=== PATIENT | male | born 1995 | race Caucasian/White ===

== ENCOUNTER 2018-02-24 17:44 | Emergency (ER) | payer SELFPAY ==
--- NOTE | 2018-02-24 20:02 | UC ---
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 Pt states pain is 6/10, sharp when he bends his wrist. He can move all finger and make a fist w/o any difficulty. Pt applied ice and took an Advil yesterday. Pt denies numbness or tingling sensation over hand or fingers, SOB, chest pain, N/V/D. - History Of Current Complaint Chief Complaint: UCUpperExtremity Stated Complaint: LEFT WRIST INJURY Time Seen by Provider: 02/24/18 19:33 Hx Obtained From: Patient Onset/Duration: Sudden Onset Severity Initially: Moderate Severity Currently: Moderate Pain Intensity: 6 Pain Scale Used: 0-10 Numeric Character Of Pain: Sharp Aggravating Factor(s): Movement, Lifting, Flexion, Twisting, Pulling Alleviating Factor(s): Rest, Ice, OTC Meds Associated Signs And Symptoms: Positive: Swelling, Bruising. Negative: Numbness /Tingling Related History: Dominant Hand Right - Allergies/Home Medications Allergies/Adverse Reactions: Allergies Allergy/AdvReac Type Severity Reaction Status Date / Time No Known Allergies Allergy Verified 02/24/18 18:30 Home Medications: Home Medications Ibuprofen TAB* [Advil TAB*] 600 mg PO Q6H PRN 02/24/18 [History Confirmed ] PMH/Surg Hx/FS Hx/Imm Hx Previously Healthy: Yes - Pt denies PMHX - Surgical History Surgical History: None - Family History Known Family History: Positive: None - Pt denies FMHX - Social History Occupation: Employed Full-time Lives: With Family Alcohol Use: None Substance Use Type: None Smoking Status (MU): Never Smoked Tobacco Review of Systems Constitutional: Negative Skin: Bruising - left wrist Eyes: Negative ENT: Negative Respiratory: Negative Cardiovascular: Negative Gastrointestinal: Negative Genitourinary: Negative Motor: Negative Neurovascular: Negative Musculoskeletal: Decreased ROM - left wrist, Other: - left wrist pain s/p injury w/ a cow Neurological: Negative Psychological: Negative Is Patient Immunocompromised?: No All Other Systems Reviewed And Are Negative: Yes Physical Exam - Summary Physical Exam Summary: Vital Signs Reviewed: Yes General: Well-Appearing, No Pain Distress, Well-Nourished male w/o any apparent distress Eyes: Positive: Conjunctiva Clear - PERRLA, EOMI ENT: Positive: Normal ENT inspection, Hearing grossly normal, Pharynx normal, TMs normal, Uvula midline Neck: Positive: Supple, Nontender, No Lymphadenopathy Respiratory: Positive: Chest non-tender, Lungs clear, Normal breath sounds, No respiratory distress Cardiovascular: Positive: RRR, No Murmur, Pulses Normal, Brisk Capillary Refill Abdomen Description: Positive: Nontender, No Organomegaly, Soft. Negative: CVA Tenderness (R), CVA Tenderness (L) Bowel Sounds: Positive: Present Musculoskeletal: Positive: Strength Intact, Other: Neurological Exam: Normal Musculoskeletal: Positive: Wrist: the L wrist is without obvious asymmetry or deformity when compared to the R wrist. No surface trauma, open wounds, moderate swelling and bruise in the medial aspect of left wrist, or obvious deformity. No overlying erythema or warmth. No bony crepitus. Point tenderness over the thenar eminence and ventral side of wrist. No scaphoid fullness or tenderness to direct palpation or axial load. Decreased ROM due to pain. Motor/ sensory function of ulnar, radial, median nerves intact. Ulnar and radial pulses intact. 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 Pt states pain is 6/10, sharp when he bends his wrist. He can move all finger and make a fist w/o any difficulty. Pt applied ice and took an Advil yesterday. Pt denies numbness or tingling sensation over hand or fingers, SOB, chest pain, N/V/D. Hx obtained. Pt given an Ibuprofen PO for pain. pt tolerated well medication and pain decreased. LF wrist X-ray ordered. Impression:Non displaced fracture of the distal radius. d/r Anita recommended a sugar tong splint. I immobilized Pt's left wrist with a sugar tongue splint.There was no neurovascular compromise after splint application; the splint was in good alignment and the pt had good sensation and capillary refill at the time of discharge. Pt Rx Ibuprofen PO and strongly advised to f/u w/ Orthopedic Dr Gomez tomorrow morning for further management on his fracture. I personallt explained D/C instructions in Dutch to the Pt. Pt will be notified of final Radiology report tomorrow. Pt understood and agreed w/ plan of care. pt left clinic hemodynamically stable. - Differential Dx/Diagnosis Differential Diagnosis/HQI/PQRI: Contusion, Fracture, Sprain, Strain, Tendonitis Provider Diagnoses: 1- left wrist pain s/p injury. 2- left wrist fracture Discharge - Sign-Out/Discharge Documenting (check all that apply): Patient Departure - D/C home All imaging exams completed and their final reports reviewed: No - Discharge Plan Condition: Stable Disposition: HOME Prescriptions: Ibuprofen TAB* [Motrin TAB* 600 MG] 600 mg PO Q6H PRN #30 tab PRN Reason: Pain Patient Education Materials: Wrist Fracture in Adults (ED) Print Language: GERMAN Referrals: [facility] [place] PHYSICIAN REFERRAL [Outside] - 1 Week Additional Instructions: 1-Please take medications as directed to alleviate pain and swelling. 2-Please apply ice, keep your wrist immobilized with the splint. Avoid heavy lifting, strenuous exercise. 3- Please f/u with Orthopedic DR Gomez in tomorrow for further evaluation and treatment. - Billing Disposition and Condition Condition: STABLE Disposition: Home - Attestation Statements Provider Attestation: Per institutional requirements, I have reviewed the chart, however, I was not consulted specifically or made aware of this patient by the midlevel provider. I did not personally evaluate, interact with , or disposition this patient.
[2018-02-24] MEDS ORDERED: Ibuprofen TAB* 600 MG PO ONE (20:10)
--- NOTE | 2018-02-25 07:47 | RAD ---
INDICATION: Left wrist injury. TECHNIQUE: 3 views of the left wrist were obtained. FINDINGS: There is swelling present along the dorsal and lateral aspect of the wrist. There is a fracture of the medial aspect of the distal radial metaphysis which extends to the articular margin. The fracture fragments are grossly nondisplaced. IMPRESSION: NONDISPLACED INTRA-ARTICULAR FRACTURE OF THE DISTAL RADIUS. R0
--- NOTE | 2018-02-25 14:24 | UC ---
- Progress Note Progress Note: OFFICIAL RADIOLOGY REPORT REVIEWED. NONDISPLACED INTRA-ARTICULAR FRACTURE OF THE LEFT DISTAL RADIUS. AT OFFICE VISIT YESTERDAY HE WAS ADVISED TO FOLLOW-UP WITH ORTHO TODAY. I CALLED AND LEFT A MESSAGE FOR PT TO CALL BACK. PLEASE CONFIRM THAT PT FOLLOWED WITH ORTHO ADVISED - TOBY VIRAMONTES MD Discharge - Sign-Out/Discharge Documenting (check all that apply): Post-Discharge Follow Up All imaging exams completed and their final reports reviewed: Yes - Discharge Plan Condition: Stable Disposition: HOME Prescriptions: Ibuprofen TAB* [Motrin TAB* 600 MG] 600 mg PO Q6H PRN #30 tab PRN Reason: Pain Patient Education Materials: Wrist Fracture in Adults (ED) Print Language: BELARUSIAN Referrals: [facility] [place] [facility]IAN REFERRAL [Outside] - 1 Week Additional Instructions: 1-Please take medications as directed to alleviate pain and swelling. 2-Please apply ice, keep your wrist immobilized with the splint. Avoid heavy lifting, strenuous exercise. 3- Please f/u with Orthopedic DR Gomez in tomorrow for further evaluation and treatment. - Billing Disposition and Condition Condition: STABLE Disposition: Home
== END 2018-02-24 21:09 | disposition home or self-care (01) ==
LOC: UCCORT 17:44
DX: S52.572A Other intraarticular fracture of lower end of left radius, initial encounter for closed fracture (principal); W23.0XXA Caught, crushed, jammed, or pinched between moving objects, initial encounter; Y93.89 Activity, other specified; Y92.71 Barn as the place of occurrence of the external cause; Y99.0 Civilian activity done for income or pay
CPT/HCPCS: 25600; 99202; A9270-GY; G0463

== ENCOUNTER 2019-03-02 15:13 | Emergency (ER) | payer OTHER ==
--- OUTSIDE RECORDS SUMMARY | 2019-03-02 15:52 | XMS REPORT ---
:1995 Author Organization [facility] Address [address] [place] [address] Care Team Providers Name Role Phone Ana Laura Abebe Unavailable Unavailable PROBLEMS Type Condition ICD9-CM Code [id number] Code Onset Condition SNOMED Code Dates Status Problem Cataract of H26.9 Active 657273565 right eye, unspecified cataract type ALLERGIES No Known Allergies ENCOUNTERS Encounter Location Date Diagnosis [address] Feb, Cataract of right eye , [place] [address] unspecified cataract type H26.[address] Feb, [place] [address] IMMUNIZATIONS No Known Immunizations SOCIAL HISTORY Never Assessed REASON FOR REFERRAL FUNCTIONAL STATUS PLAN OF CARE Activity Details Follow Up FFup preop/postop eye surgery, Yearly physical Reason: VITAL SIGNS Temperature 98.1 degrees Fahrenheit 2019-02-17 Heart Rate 20 2019-02-17 Weight 92.7 2019-02-17 Height 56.9 in 2019-02-17 BMI 20.13 kg/m2 2019-02-17 Oximetry 100RA % 2019-02-17 Blood pressure systolic 120 mm Hg 2019-02-17 Blood pressure diastolic 89 mm Hg 2019-02-17 MEDICATIONS Medication Instructions Dosage Frequency Start End Date Duration Status Date Visine 0.05 % Ophthalmic prn 1 drop into Active affected eye as needed PROCEDURES Procedure Date Ordered Result Body Site Sign Lang/Oral Stucco Applicator > 8 minutes Feb 17, 2019 Visual acuity screen Feb 17, 2019 BODY MASS INDEX DOCD Feb 17, 2019 SMOKING + 2ND HAND ASSESSED Feb 17, 2019 Oxygen saturation results documented and reviewed Feb 17, 2019 BLOOD PRESSURE, MEASURED Feb 17, 2019 RESULTS Name Result Date Reference Range -Vision Screen 2019-02-17 Left Eye: 20/20 Right Eye: 20/20 Both Eyes: 20/20 Color Blind ? No REASON FOR VISIT Check left eye, RHIO? JACOB, Offer Tdap, PHQ2 /fuh, agrees tohave tdap today, patient states 5 yearsago a wood chip went into his eye and has noticed redness ever since. Patient states he is not sure if the wood chip is related to this or if it's a cataract., PAtient c/o blurred vision at times, redness, watery eyes and pain pain level of 5 out of 0-10 scale. Insurance Providers [facility] Member Patient Patient Patient Patient Patient Subscriber Subscriber Subscriber Group Insurance Plan Plan Plan Plan ID Relationship Address Phone Name Date of ID Name Date of No Type Insurance Insurance Insurance Coverage to Subscriber Address Phone Name Dates Case [phone] Case self Jose C [id number] Management Shawn Mooney 02 Management [facility] [address] [facility]
--- OUTSIDE RECORDS SUMMARY | 2019-03-02 15:52 | XMS REPORT ---
:1995 Author Organization [facility] Address [address] [place] [address] Care Team Providers Name Role Phone Ana Laura Abebe Unavailable Unavailable PROBLEMS Type Condition ICD9-CM Code [id number] Code Onset Condition SNOMED Code Dates Status Problem Cataract of H26.9 Active [id number] right eye, unspecified cataract type ALLERGIES No Information ENCOUNTERS Encounter Location Date Diagnosis [address] Feb, [place] [address] Feb, Cataract of right eye , [place] [address] unspecified cataract type H26.9 [facility] - [address] Feb, [place] [address] IMMUNIZATIONS No Known Immunizations SOCIAL HISTORY Never Assessed REASON FOR REFERRAL FUNCTIONAL STATUS PLAN OF CARE VITAL SIGNS MEDICATIONS Unknown Medications PROCEDURES No Known procedures RESULTS No Results REASON FOR VISIT Test results Insurance Providers [facility] Health Member Patient Patient Patient Patient Patient Subscriber Subscriber Subscriber Group Insurance Plan Plan Plan Plan ID Relationship Address Phone Name Date of ID Name Date of No Type Insurance Insurance Insurance Coverage to Subscriber Address Phone Name Dates Case [phone] Case self Jose C [id number] Management Shawn Mooney Management [facility] [address] [facility]
[2019-03-02 16:12] VITALS: BP 112/63
--- NOTE | 2019-03-02 16:33 | UC ---
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 No neck pain, no fall as a result. Pain is limited to the left shoulder. Hx obtained with assistance of staff member from the farm. 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 - History of Current Complaint Chief Complaint: UCUpperExtremity Stated Complaint: LEFT SHOULDER INJURY Time Seen by Provider: 03/02/19 16:23 Hx Obtained From: Patient Onset/Duration: Sudden Onset Timing: Constant Severity Initially: Moderate Severity Currently: Moderate Pain Intensity: 7 Character: Aching, Throbbing Aggravating Factor(s): Movement, Lifting Alleviating Factor(s): Rest Associated Signs And Symptoms: Positive: Negative. Negative: Bruising, Numbness /Tingling Related History: Dominant Hand Right - Risk Factors Non-Orthopedic Risk Factor: Negative DVT Risk Factors: Negative Septic Arthritis Risk Factor: Negative - Allergies/Home Medications Allergies/Adverse Reactions: Allergies Allergy/AdvReac Type Severity Reaction Status Date / Time No Known Allergies Allergy Verified 03/02/19 16:03 PMH/Surg Hx/FS Hx/Imm Hx Previously Healthy: Yes - Surgical History Surgical History: None - Family History Known Family History: Positive: None - Cannot easily obtain due to language barrier - Social History Occupation: Employed Full-time Lives: Dormitory/Roommates Alcohol Use: None Substance Use Type: None Smoking Status (MU): Never Smoked Tobacco Review of Systems All Other Systems Reviewed And Are Negative: Yes Constitutional: Positive: Negative Motor: Positive: Negative Neurovascular: Positive: Negative Musculoskeletal: Positive: Arthralgia Psychological: Positive: Negative Is Patient Immunocompromised?: No Physical Exam Triage Information Reviewed: Yes Appearance: Well-Appearing, Pain Distress - mild to moderate Vital Signs: Initial Vital Signs Temp 98.3 F 03/02/19 16:04 Pulse 71 03/02/19 16:04 Resp 18 03/02/19 16:04 BP 112/63 03/02/19 16:04 Pulse Ox 100 03/02/19 16:04 Eyes: Positive: Conjunctiva Clear ENT: Positive: Pharynx normal Neck: Positive: Supple, No Lymphadenopathy Respiratory: Positive: Lungs clear, Normal breath sounds Cardiovascular: Positive: RRR, No Murmur Musculoskeletal: Positive: ROM Limited @ - left shoulder with pain with abduction beyond Neurological: Positive: Alert, Muscle Tone Normal, Fatigued Diagnostics - Radiology No standard instances Radiology Interpretation Completed By: Radiologist Summary of Radiographic Findings: No fracture seen shoulder, clavicle, ribs per radiologist. Shoulder Course/Dx - Course Course Of Treatment: Continue iburpfoen, add ice, modify duty as needed. - Differential Dx/Diagnosis Differential Diagnosis/HQI/PQRI: Contusion, Rotator Cuff Injury, Sprain, Strain Provider Diagnosis: Contusion, shoulder /upper arm, Contusion of rib on right side Discharge ED - Sign-Out/Discharge Documenting (check all that apply): Patient Departure All imaging exams completed and their final reports reviewed: Yes - Discharge Plan Condition: Stable Disposition: HOME Patient Education Materials: Contusion in Adults (ED), Rib Contusion (ED) Referrals: No Primary Care Phys,NOPCP [Primary Care Provider] - Additional Instructions: Continue ibuprofen 600mg three or four times per day for pain. Ice the left shoulder follow up if there is continued pain in the shoulder. I have added an orthopedic referral for evaluation if there is continued pain. Modify duties at work to accommodate the injury. - Billing Disposition and Condition Condition: STABLE Disposition: Home
[2019-03-02] MEDS ORDERED: Ibuprofen TAB* 600 MG PO ONE (16:36)
== END 2019-03-02 18:14 | disposition home or self-care (01) ==
LOC: UCCORT 15:13
DX: S40.012A Contusion of left shoulder, initial encounter (principal); S40.022A Contusion of left upper arm, initial encounter; S20.211A Contusion of right front wall of thorax, initial encounter; X58.XXXA Exposure to other specified factors, initial encounter; Y93.89 Activity, other specified; Y92.79 Other farm location as the place of occurrence of the external cause; Y99.0 Civilian activity done for income or pay
CPT/HCPCS: 99212; A9270-GY; G0463